=== PATIENT | male | born 1970 | race Hispanic/Latino ===

== ENCOUNTER → 2020-02-15 | Day surgery (SDC) | payer OTHER ==
[~2020-02-15] MED LIST: BUPIVACAINE 0.25% 30ML SDV INJ ONE; CEFAZOLIN SOD 1 GM/NS 50ML 100 ML IV ONE; FENTANYL CITRATE/PF 100MCG/2 ML INJ ONE; HYDRALAZINE HCL 20 MG/ML VIAL ONE; HYDROCODONE/APAP 5MG-325MG TAB ONE; HYDROMORPHONE 1MG/1ML INJ ONE; LABETALOL HCL 20 ML ONE; LIDOCAINE 1% W/EPINEPHRINE 20 ML VIAL ONE; LIDOCAINE HCL 1% LOCAL INJ 20 ML VIAL ONE; SEROQUEL100 MG PO; VALIUM10 MG PO
--- NOTE | 2020-02-15 09:24 | NUR ---
ORTHOPEDICS OPERATIVE NOTE DATE OF SURGERY: 02/15/2020 PREOPERATIVE DIAGNOSES: Right Knee Complex Medial Meniscus Tear POSTOPERATIVE DIAGNOSES: Right Knee Complex Medial Meniscus Tear, Impinging Plica, Synovitis PROCEDURE: Right Knee Arthroscopic Medial Meniscus Repair, Excision of Plica, and Partial Synovectomy, Application of Fibrin Clot SURGEON: Bessy Hawley DO CENTRAL OFFICE FRAME WIRER: ANN Romano ANESTHESIA: General COMPLICATIONS: None TOURNIQUET: Applied but not inflated. No tourniquet EBL: Minimal INDICATIONS: Due to persistent pain and limitations on activity combined with findings on exam and imaging, the patient requests surgical treatment. Nonopera tive care and alternative surgical options were reviewed. We agreed that this provided the best risk/benefit profile for this patient, understanding and accepting risks of recurrent/persistent symptoms, infection, bleeding, stiffness, neurological/vascular damage, failure to improve and anesthetic complication (as reviewed by anesthesia service). Also, the patient understands that arthroscopic treatment of articular cartilage lesions provides temporary incomplete relief but that meniscal symptoms should be well addressed. FINDINGS: Patella Normal Trochlea - Normal Lateral Gutter Normal Medial Gutter Normal Medial Compartment Femoral - Normal Tibial -Grade 1 Medial Meniscus - Complex tear of posterior horn extending to red -red capsule junction Cruciate region - Normal Lateral Compartment Femoral - Normal Tibial - Normal Lateral Meniscus - Normal Synovium - Hypertrophic & Hyperemic with large obstructing impinging Plica PROCEDURE: With the patient in the supine position with all prominences well padded, general anesthesia was obtained. Sterile prepping and draping were performed. Antibiotics had been given and a time out performed. After an injection of 1% Lidocaine with Epinephrine in the proposed incision sites, The arthroscope was i nserted via a small lateral parapatellar tendon incision into the patellofemoral space. Under direct visualization, a medial parapatellar tendon portal was created providing a working portal. Diagnostic arthroscopy was performed and the above findings were noted. Within the patellofemoral space, a large impinging plica was seen obstructing visualization throughout the patellofemoral space Within the medial compartment, the medial meniscus was debrided to establish a well-balanced rim, removing approximately 60% of the posterior horn of the medial meniscus. Due to extension to the capsul with the tear, the red-red region was balanced and a fast fix was placed reducing and stabilizing the tear. A stable border was created. 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 Within the intercondylar space, the ACL was visualized and intact The lateral compartment demonstrated a normal lateral meniscus with no chondromalacia. A tricompartmental partial synovectomy was performed. After trephination of the capsule near the tear to promote synovialization, a fibrin clot was injected over the repair to augment healing. The joint was extravasated and .25% marcaine was injected into the knee. The incisions were closed and more local was injected around the portal sites. Steristrips, Xeroform, 4x4s, ABDs and a compressive MILLIE bandage and a brace was applied. The patient was awakened and transferred to the PACU in satisfactory condition having tolerated the procedure well.
[2020-02-15 10:29] VITALS: BP 152/84
== END | disposition home or self-care (01) ==
LOC: OR 05:24
PROVIDERS: ATTEND Orthopaedic Surgery
DX: S83.231A Complex tear of medial meniscus, current injury, right knee, initial encounter (principal); M67.51 Plica syndrome, right knee; M65.9 Synovitis and tenosynovitis, unspecified; M94.261 Chondromalacia, right knee; M54.9 Dorsalgia, unspecified; F41.9 Anxiety disorder, unspecified; X58.XXXA Exposure to other specified factors, initial encounter; Z01.810 Encounter for preprocedural cardiovascular examination; Z01.812 Encounter for preprocedural laboratory examination; Z11.59 Encounter for screening for other viral diseases
CPT/HCPCS: 29882; 29999; 87635; 93005; J0360; J0690; J1170; J3010; J3490; J2001